=== PATIENT | male | born 1955 | race Asian ===

== ENCOUNTER 2023-12-06 23:00 | Emergency (ER) | payer OTHER ==
[2023-12-06 23:22] VITALS: BMI 22.4
[2023-12-06] MEDS ORDERED: METOCLOPRAMIDE HCL INJECTION 10 MG/2 ML VIAL ONE (23:58)
[2023-12-06] MEDS ORDERED: ACETAMINOPHEN INJECTION 100 ML IVPB ONE (23:59)
[2023-12-07] MEDS: METOCLOPRAMIDE HCL INJECTION 10 MG/2 ML VIAL IVPUSH ONE (00:29)
[2023-12-07] MEDS: SODIUM CHLORIDE 0.9% 500 ML INFUS.BAG IV ONE (00:29)
[2023-12-07] MEDS: ACETAMINOPHEN 1000 MG/100 ML BAG IVPB ONE (00:30)
[2023-12-07 00:43] LABS: BASO % 0.1 % (0-2.0); EOS % 0.3 % (0-4.5); HEMATOCRIT 39.4 % (35.4-49); HEMOGLOBIN 13.7 GM/dL (11.7-16.9); LYMPH % 12.6 % (8-40); MCH 29.3 pg (25.7-33.7); MCHC 34.8 g/dl (32.0-35.9); MEAN CELL VOLUME 84.1 fl (80-96); MEAN PLT VOLUME 7.7 fl (7.5-11.1); MONO % 3.5 % (3.8-10.2); NEUT % 83.5 % (42.8-82.8); PLATELET COUNT 239 10^3/uL (134-434); RBC 4.68 M/mm3 (4.00-5.60); RDW 14.2 % (11.9-15.9); WHITE BLOOD COUNT 10.7 K/mm3 (4.0-10.0)
[2023-12-07 00:46] LABS: INR 1.05 (0.83-1.09); PROTHROMBIN TIME (PATIENT) 12.2 SEC (9.7-13.0)
[2023-12-07 00:48] LABS: ACTIVATED PTT 30.5 SECONDS (25.2-36.5)
[2023-12-07 00:52] LABS: POTASSIUM 4.6 mmol/L (3.5-5.1)
[2023-12-07 00:54] LABS: ALBUMIN 3.9 g/dl (3.4-5.0); CALCIUM 9.3 mg/dL (8.5-10.1)
[2023-12-07 00:55] LABS: BLOOD UREA NITROGEN 17.6 mg/dL (7-18); MAGNESIUM 1.9 mg/dL (1.8-2.4)
[2023-12-07 00:59] LABS: BILIRUBIN,TOTAL 0.7 mg/dL (0.2-1); TOT PROT 7.3 g/dl (6.4-8.2)
[2023-12-07 05:50] VITALS: PULSE 66
[2023-12-07 08:57] VITALS: BP 146/100; RESP 17; TEMP 97.9
== END 2023-12-07 09:00 | disposition home or self-care (01) ==
LOC: JER 23:00
PROC: 3E030NZ Introduction of Analgesics, Hypnotics, Sedatives into Peripheral Vein, Open Approach (ICD-10-PCS; principal; 2023-12-07)
PROC: 3E030GC Introduction of Other Therapeutic Substance into Peripheral Vein, Open Approach (ICD-10-PCS; 2023-12-07)
DX: R11.2 Nausea with vomiting, unspecified (principal); R51.9 Headache, unspecified; K59.00 Constipation, unspecified; R10.9 Unspecified abdominal pain; R14.0 Abdominal distension (gaseous); U07.1 COVID-19
CPT/HCPCS: 0241U-QW; 36415; 70450-TC; 71045-TC-FY; 74177-TC; 80053; 83690; 83735; 84484; 85025; 85610; 85730; 93005; 93010; 99285-25; J0131

== ENCOUNTER 2024-06-27 04:18 | Day surgery (SDC) | payer OTHER ==
[2024-06-19 14:44] VITALS: BMI 23.6
[2024-06-27 08:47] VITALS: TEMP 97.2
[2024-06-27 08:53] VITALS: RESP 16
[2024-06-27 09:25] VITALS: BP 143/84; PULSE 59
== END 2024-06-27 09:27 | disposition home or self-care (01) ==
LOC: JASU-ENDO 04:18
PROVIDERS: ATTEND Internal Medicine Gastroenterology
PROC: 0DBK8ZX Excision of Ascending Colon, Via Natural or Artificial Opening Endoscopic, Diagnostic (ICD-10-PCS; 2024-06-27)
PROC: 0DBP8ZX Excision of Rectum, Via Natural or Artificial Opening Endoscopic, Diagnostic (ICD-10-PCS; 2024-06-27)
PROC: 0DB68ZX Excision of Stomach, Via Natural or Artificial Opening Endoscopic, Diagnostic (ICD-10-PCS; 2024-06-27)
PROC: 0DB78ZX Excision of Stomach, Pylorus, Via Natural or Artificial Opening Endoscopic, Diagnostic (ICD-10-PCS; 2024-06-27)
PROC: 0DBK8ZX Excision of Ascending Colon, Via Natural or Artificial Opening Endoscopic, Diagnostic (ICD-10-PCS; principal; 2024-06-27 08:00)
DX: Z12.11 Encounter for screening for malignant neoplasm of colon (principal); D12.8 Benign neoplasm of rectum; K63.5 Polyp of colon; K52.9 Noninfective gastroenteritis and colitis, unspecified; K29.60 Other gastritis without bleeding
CPT/HCPCS: 88305-TC; 88342-TC